=== PATIENT | male | born 1940 | race Caucasian/White ===

== ENCOUNTER 2017-01-07 06:16 | Day surgery (SDC) | payer MEDICARE, OTHER ==
[2017-01-05 08:52] VITALS: BMI 27.3
[2017-01-07] MEDS ORDERED: ATORVASTATIN 80 MG TAB PO STA (06:39)
[2017-01-07] MEDS ORDERED: SODIUM CHLORIDE 0.9% 1,000 ML in EMPTY BAG 1 BAG IV ONE (06:39)
[2017-01-07] MEDS ORDERED: NITROGLYCERIN SL TABS 0.4 MG TAB SUBLINGUAL PRN (06:39)
[2017-01-07] MEDS ORDERED: ASPIRIN 325 MG TAB PO STA (06:39)
[2017-01-07] MEDS ORDERED: ALPRAZolam 0.5 MG TAB PO PRN (06:39)
[2017-01-07] MEDS ORDERED: ALPRAZolam 0.25 MG TAB PO PRN (06:39)
[2017-01-07] MEDS ORDERED: MIDAZOLAM 2 MG/2 ML VIAL ONE ×2 (07:11→10:41)
[2017-01-07] MEDS ORDERED: fentaNYL (PF) 50 MCG/ML 2 ML AMP ONE (07:12)
[2017-01-07] MEDS ORDERED: IV FLUID CONTINUATION 850 ML IV ONE (07:26)
[2017-01-07] MEDS: BENZOCAINE SPRAY 1 SPRAY CAN MUCOUS MEM ONE ×2 (07:26→07:36)
[2017-01-07] MEDS ORDERED: MIDAZOLAM 2 MG/2 ML VIAL IVP ONE ×2 (07:36→08:23)
[2017-01-07] MEDS ORDERED: fentaNYL (PF) 50 MCG/ML 2 ML AMP IV ONE (07:36)
[2017-01-07 07:44] LABS: Anion Gap 9 mmol/L; Blood Urea Nitrogen 15 mg/dL (9-20); Calcium 8.7 mg/dL (8.4-10.2); Carbon Dioxide 21 mmol/L (22-30); Chloride 108 mmol/L (98-107); Glucose 91 mg/dL (74-99); Non-African American GFR(MDRD) >60 (>60 ml/min/1.73 sqM); Sodium 138 mmol/L (137-145)
[2017-01-07 07:52] VITALS: PULSE 75
--- NOTE | 2017-01-07 08:06 | P.TEE ---
Indications for Procedure(s): Symptoms of exertional shortness of breath. Assessment of mitral and aortic regurgitation Preoperative Diagnosis: Moderate to severe mitral and moderate aortic regurgitation Postoperative Diagnosis: About 2+ mitral and 1-2+ aortic regurgitation. Moderate tricuspid regurgitation Description of Procedure(s): INDICATION: Assessment of mitral and aortic regurgitation CONSENT: . Informed consent was obtained from patient verbally PROCEDURE: Patient was brought to the lab in a fasting state. He was prepped and draped in the usual fashion. Patient was given 2 mg of IV Versed, and also 50 g of fentanyl for conscious sedation. The throat was sprayed with Hurricaine. A lubricated Omni probe was then introduced into the oropharynx and was advanced into the esophagus. Multiple views were obtained from esophagus and stomach. Patient tolerated the procedure well. Color, pulsed wave Doppler, and also saline bubble injections were performed. FINDINGS: The mitral valve structure appeared to be normal. There is central mitral regurgitation which appeared to be about 2+ with a PISA value of about 0.5-0.6. There is no reversal of flow in the pulmonary veins. The aortic valve appeared to be tricuspid and function normally with mild regurgitation. Tricuspid valve showed evidence of moderate regurgitation. Pacemaker wires were partially visualized in the right-sided chambers. The interatrial septum appeared to be intact without any spontaneous shunt. Saline bubble injection did not reveal any evidence of shunt. Left apical appendage appeared to be free of any clot. Left ventricle function appeared to be normal. I echo showed minimal plaque. IMPRESSION: 2+ mitral regurgitation. 1 to 2+ aortic regurgitation. Preserved LV function. No clot in left atrial appendage. No shunt across the interatrial septum PLAN: . Continue maximal medical therapy. Assessment by cardiac catheterization to rule out underlying ischemic heart disease.
[2017-01-07] MEDS ORDERED: SODIUM CHLORIDE 0.9% 1,000 ML IV SCH ×2 (08:15→09:15)
[2017-01-07] MEDS ORDERED: LIDOCAINE 2% INJ 20 MG/ML SQ ONE (08:22)
[2017-01-07] MEDS ORDERED: IV FLUID CONTINUATION 800 ML IV ONE (08:27)
[2017-01-07] MEDS ORDERED: IOHEXOL 350 MG/ML 125ML BOTTLE INJ ONE ×2 (08:51)
[2017-01-07] MEDS ORDERED: RX INFO: IV CONTRAST WAS GIVEN 1 EACH MISC MISCELLANE PRN (09:09)
--- NOTE | 2017-01-07 09:09 | P.PCN ---
Date of Procedure: 01/07/17 Preoperative Diagnosis: Symptoms of exertional chest tightness and shortness of breath. 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 His nuclear stress test did not reveal any significant inducible ischemia. Echocardiogram showed evidence of moderate to severe mitral and also aortic regurgitation. Patient had a HARVEY examination this morning which showed only about 2+ mitral and about 1-2+ aortic regurgitation. Patient is advised to have cardiac catheterization to rule out any underlying significant ischemic heart disease. CONSENT:I have discussed the risks, benefits and alternative therapies for the above-mentioned procedure and for both sedation/analgesia as well as necessary blood product administration, if indicated, as they pertain to this patient. The patient has indicated understanding and acceptance of the risks and procedures discussed. PROCEDURE: Patient was brought to the lab in a fasting state. Patient was given some IV sedation. The right groin is infiltrated with lidocaine and right femoral artery was entered using Seldinger technique. A 6-Estonian catheter was left in place and selective coronary arteriography and left ventriculography was performed. However patient has tortuous aorta and we have encountered difficulty advancing the right Jessica catheter. At this point. The existing sheath was exchanged to a long 25 cm sheath. Patti catheter was was able to be advanced after the introduction of the long sheath and selective injection of the right coronary artery were obtained. Catheter Patient tolerated the procedure well. Femoral angiogram was performed and Angio-Seal was applied for hemostasis. No immediate complications were noted and patient was transferred to [facility] in a stable condition Conscious Sedation: Versed : 1 mg Fentanyl : 0 g Duration 35 minutes HEMODYNAMICS: . The aortic pressure is 130/70. Left ankle end-diastolic pressure is 16-20. There was no gradient across the aortic valve SELECTIVE CORONARY ARTERIOGRAPHY: LEFT MAIN: Normal length and patent THE LEFT ANTERIOR DESCENDING CORONARY ARTERY: . This is a good caliber vessel with a calcification in the midportion without any significant lesions except 80% eccentric lesion of the LAD near the apex. THE LEFT CIRCUMFLEX AND IS CORONARY ARTERY: This is a moderate caliber vessel giving rise good-sized OM branch. THE RIGHT CORONARY ARTERY: Good caliber vessel with mild ectasia and plaque in the proximal portion but no critical lesions LEFT VENTRICULOGRAPHY: Not performed FINAL IMPRESSION: . About 80% eccentric lesion involving the fourth distal LAD near the tip of the left ventricle. The proximal and mid LAD shows diffuse plaque without any significant lesions. The right coronary artery shows ectasia in the proximal portion without any significant lesions PLAN: Maximum medical therapy and this factor modification PROGNOSIS: Fair
[2017-01-07 12:44] LABS: Glucose,Whole Blood 85 mg/dL (75-99)
[2017-01-07 15:51] VITALS: RESP 20
[2017-01-07 15:52] VITALS: BP 127/80
--- NOTE | 2017-01-13 20:43 | CDI ---
Dear Dr. Rivas, In order to code and bill correctly for the moderate sedation that the patient was given during the 2 procedures, we need more information. It is not clear if the patient was moderately sedated from the start of the first procedure all the way through to the end of the second procedure -OR- if the patient was sedated for the first procedure, and then paused/stopped, and then sedated again for the second procedure. The amount of time that we code and bill for the moderate sedation will vary depending on the if it was the entire 2 procedures or split up. Please answer as an addendum to your OP report. Thank you MARIAM Michel
== END 2017-01-07 14:30 | disposition home or self-care (01) ==
LOC: CATHCVL 06:16
PROVIDERS: ATTEND Internal Medicine Cardiovascular Disease
DX: I25.119 Atherosclerotic heart disease of native coronary artery with unspecified angina pectoris (principal); I08.3 Combined rheumatic disorders of mitral, aortic and tricuspid valves; I10 Essential (primary) hypertension; E78.00 Pure hypercholesterolemia, unspecified; I49.5 Sick sinus syndrome; Z95.0 Presence of cardiac pacemaker; I25.2 Old myocardial infarction; Z88.2 Allergy status to sulfonamides; Z87.891 Personal history of nicotine dependence; Z79.899 Other long term (current) drug therapy
CPT/HCPCS: 93312; 93320; 93325; 93458; 80048; C1760; C1769 ×2; C1894 ×2; J2001; J2250; J3010; Q9967

== ENCOUNTER → 2017-01-29 | Outpatient (CLI) | payer MEDICARE, OTHER | LOC: CPPFTMAIN 10:06 | PROVIDERS: ATTEND Internal Medicine Cardiovascular Disease | DX: R06.02 Shortness of breath (principal) | CPT/HCPCS: 94060; 94726; 94729 ==

== ENCOUNTER 2017-09-28 06:33 | Day surgery (SDC) | payer MEDICARE, OTHER ==
[2017-09-24 11:58] VITALS: BMI 27.0
[~2017-09-28 06:33] MED LIST: LACTATED RINGERS 1,000 ML IV SCH; LIDOCAINE 1% 20 ML VIAL (10MG/ML) FOR IV START INTRADERMA PRN; MIDAZOLAM 2 MG/2 ML VIAL IV PRN; SODIUM CHLORIDE 0.9% 1,000 ML IV SCH
[2017-09-28 06:57] VITALS: TEMP 97
[2017-09-28 07:31] LABS: Anion Gap 13 mmol/L; Blood Urea Nitrogen 15 mg/dL (9-20); Calcium 9.2 mg/dL (8.4-10.2); Carbon Dioxide 24 mmol/L (22-30); Chloride 104 mmol/L (98-107); Glucose 94 mg/dL (74-99); Potassium 4.4 mmol/L (3.5-5.1); Sodium 141 mmol/L (137-145)
[2017-09-28] MEDS ORDERED: PROPOFOL 10 MG/ML 20 ML VIAL IV ONE (07:45)
--- NOTE | 2017-09-28 08:08 | P.PCN ---
Date of Procedure: 09/28/17 Preoperative Diagnosis: Atrial fibrillation, high degree AV block, status post permanent pacemaker implantation Postoperative Diagnosis: The same Description of Procedure: This patient is known to have persistent atrial fibrillation. Patient has been symptomatic. Patient was adequately anticoagulated and advised to have a cardioversion. Patient was brought to the lab in a fasting state. He was evaluated by anesthesia. He was prepped and draped in the usual fashion. Department of anesthesia is administered IV sedation. Anterior posterior paddles were applied. Synchronized shock of the 200 followed by 300 J was applied. It appears the patient converted to sinus rhythm. His difficult however to assess if he converts to sinus rhythm and marked because of pacemaker rhythm. His pacemaker will be checked today. He patient is stable, patient will be discharged home later today. Patient will continue current medical therapy. He will also increase the dose of the flecainide 200 mg twice a day, he patient is in sinus rhythm. Follow-up in the office in one week.
[2017-09-28] MEDS ORDERED: SODIUM CHLORIDE 0.9% 1,000 ML IV SCH (08:15)
[2017-09-28 08:22] VITALS: RESP 18
[2017-09-28 08:50] VITALS: PULSE 60
[2017-09-28 09:27] VITALS: BP 110/76
== END 2017-09-28 10:25 | disposition home or self-care (01) ==
LOC: CATHCVL 06:33
PROVIDERS: ATTEND Internal Medicine Cardiovascular Disease
DX: I48.1 Persistent atrial fibrillation (principal); I44.30 Unspecified atrioventricular block; Z95.0 Presence of cardiac pacemaker; I25.10 Atherosclerotic heart disease of native coronary artery without angina pectoris; E78.5 Hyperlipidemia, unspecified; I49.5 Sick sinus syndrome; M19.90 Unspecified osteoarthritis, unspecified site; I25.2 Old myocardial infarction; Z79.01 Long term (current) use of anticoagulants; Z79.82 Long term (current) use of aspirin; Z79.899 Other long term (current) drug therapy; Z88.2 Allergy status to sulfonamides
CPT/HCPCS: 92960; 80048; J2704

== ENCOUNTER 2017-12-15 10:42 | Day surgery (SDC) | payer MEDICARE, OTHER ==
[2017-12-10 16:07] VITALS: BMI 25.8
[~2017-12-15 10:42] MED LIST changes: -SODIUM CHLORIDE 0.9% 1,000 ML IV SCH
[2017-12-15 11:13] VITALS: RESP 16; TEMP 97.4
[2017-12-15] MEDS ORDERED: LIDOCAINE 1% INJ 10MG/ML (20 ML MDV) ONE (11:44)
[2017-12-15] MEDS ORDERED: PROPOFOL 10 MG/ML 20 ML VIAL IV ONE (11:44)
--- NOTE | 2017-12-15 12:19 | P.PCN ---
Date of Procedure: 12/15/17 Procedure(s) Performed: Procedure: Total colonoscopy. Preoperative diagnosis: Blood in the stools. Postoperative diagnosis: 1. Sigmoid diverticulosis with no evidence of acute diverticulitis, strictures, polyps or cancer. 2. Less than ideal preparation but no other obvious pathology or bleeding. Preparation: HalfLytely prep. Sedation: Was provided by anesthesia. Brief clinical history: The patient is a 77-year-old male who is scheduled for this evaluation because of finding of blood in his stools. The patient has been on antiplatelet therapy. There is history of polyps and he had colonoscopies over the years. His last exam was around 8 years ago. The patient denies any overt bleeding or any abdominal pains, change in bowel habits or upper GI symptoms. Procedure: With the patient on his left lateral decubitus position and after informed consent and adequate sedation, the perianal area was inspected and it did not show any fissures or fistulas. There were no masses felt on digital rectal examination. The Olympus CFQ 160L video colonoscope was then inserted in the rectum in the usual fashion and advanced to the cecum. The preparation was less than ideal and there was thick fecal secretions and fecal debris that could not be washed off or suctioned totally. The mucosa appeared healthy. No large polyps or tumors were seen or any obvious angiodysplasia or bleeding. I retroflexed the endoscope in the rectum before the endoscope was withdrawn. Low -grade internal hemorrhoids were noted but there was no evidence of bleeding. The patient tolerated the procedure well. Plan: The patient was reassured. In the absence of upper GI complaints or significant anemia I did not schedule an upper endoscopy for the workup of his Hemoccult positive stools at this time and this can be kept as a contingency based on his course. He will follow up with you as planned.
[2017-12-15 12:39] VITALS: BP 133/87; PULSE 65
== END 2017-12-15 12:58 | disposition home or self-care (01) ==
LOC: ORWHC2ENDO 10:42
DX: K92.1 Melena (principal); K57.30 Diverticulosis of large intestine without perforation or abscess without bleeding; K64.8 Other hemorrhoids; K21.9 Gastro-esophageal reflux disease without esophagitis; M19.90 Unspecified osteoarthritis, unspecified site; I10 Essential (primary) hypertension; I48.91 Unspecified atrial fibrillation; Z88.2 Allergy status to sulfonamides; Z79.1 Long term (current) use of non-steroidal anti-inflammatories (NSAID); Z79.01 Long term (current) use of anticoagulants; Z79.82 Long term (current) use of aspirin; Z79.899 Other long term (current) drug therapy; Z86.010 Personal history of colon polyps; Z96.651 Presence of right artificial knee joint; Z95.0 Presence of cardiac pacemaker
CPT/HCPCS: 45378; J2001; J2704

== ENCOUNTER 2018-08-23 11:34 | Day surgery (SDC) | payer MEDICARE, OTHER ==
[2018-08-18 13:39] VITALS: BMI 27.3
[~2018-08-23 11:34] MED LIST changes: -MIDAZOLAM 2 MG/2 ML VIAL IV PRN
[2018-08-23 11:57] VITALS: RESP 16; TEMP 97.8
[2018-08-23] MEDS ORDERED: PROPOFOL 10 MG/ML 20 ML VIAL IV ONE (12:33)
[2018-08-23] MEDS ORDERED: LIDOCAINE 1% INJ 10MG/ML (20 ML MDV) ONE (12:33)
--- NOTE | 2018-08-23 13:21 | P.PCN ---
Date of Procedure: 08/23/18 Procedure(s) Performed: Procedure: 1. Esophagogastroduodenoscopy and biopsy. 2. Colonoscopy and polypectomy. Preoperative diagnosis: History of polyps and blood in the stools. Postoperative diagnosis: 1. Antral gastritis with deformity possibly related to peptic ulcer disease. 2. Biopsies obtained from the antrum. 3. Sigmoid diverticulosis with no evidence of acute diverticulitis or strictures. 4. Cecal polyp snared and retrieved by suction but no large polyps or cancer. Preparation: HalfLytely prep. Sedation: Was provided by anesthesia. Brief clinical history: The patient is a 77-year-old male with history of polyps who is referred because of finding of blood in his stools. He had a prior colonoscopy in November of last year but his preparation was less than ideal. He had a recent drop in his hemoglobin and he has symptoms of shortness of breath and there was evidence of blood in his stools but no overt bleeding. Procedure: With the patient on his left lateral decubitus position and after informed consent and adequate sedation, I passed the Olympus-GIF H190 video upper endoscope through the cricopharyngeus down the esophagus. GE junction was around 40 cm from the incisors. There was no obvious hiatal hernia or any obvious esophagitis or complicated reflux disease or bleeding. The endoscope was then passed into the stomach which was insufflated with air and inspected in detail including the retroflex view in the cardia. There was erythema, edema and deformity in the antrum and immediate prepyloric area with a small erosion in the immediate prepyloric area that could be the site of a healing ulceration but no actual ulcers were noted. Pyloric channel did not show any ulcers. Duodenal bulb, post bulbar area and descending duodenum appeared within normal limits. I obtained biopsies from the antrum then the endoscope was withdrawn and I proceeded to perform the colonoscopy. Perianal area did not show any fissures or fistulas. There were no masses felt on digital rectal examination. The Olympus CF H190 and video colonoscope was then inserted in the rectum in the usual fashion and advanced to the cecum. There were several diverticular orifices seen scattered in the sigmoid with no evidence of acute diverticulitis or strictures. There was a 1-1.5 cm polyp in the cecum which was snared and retrieved by suction but there were no large polyps or cancer. The mucosa appeared healthy. No evidence of bleeding. I retroflexed the endoscope in the rectum before the endoscope was withdrawn. The patient tolerated the procedure well. Plan: The patient was reassured. Will await biopsy results. Discussed dietary measures. Consideration can be given for a capsule endoscopy if he continues to manifest evidence of bleeding despite healing of his gastritis. For colon cancer screening, consideration can be given for repeat colonoscopy in 5 years depending on his overall health at that time. He will discuss that with you.
[2018-08-23 13:28] VITALS: BP 118/79; PULSE 62
== END 2018-08-23 13:59 | disposition home or self-care (01) ==
LOC: ORWHC2ENDO 11:34
DX: K29.50 Unspecified chronic gastritis without bleeding (principal); K57.30 Diverticulosis of large intestine without perforation or abscess without bleeding; K92.1 Melena; K51.40 Inflammatory polyps of colon without complications; I48.91 Unspecified atrial fibrillation; K21.9 Gastro-esophageal reflux disease without esophagitis; M19.90 Unspecified osteoarthritis, unspecified site; Z96.651 Presence of right artificial knee joint; Z88.2 Allergy status to sulfonamides; Z79.01 Long term (current) use of anticoagulants; Z79.82 Long term (current) use of aspirin; Z86.010 Personal history of colon polyps; Z79.899 Other long term (current) drug therapy; Z79.1 Long term (current) use of non-steroidal anti-inflammatories (NSAID); Z95.0 Presence of cardiac pacemaker
CPT/HCPCS: 88305; 45385; 43239; J2001; J2704

== ENCOUNTER 2018-10-15 09:25 | Emergency (ER) | payer OTHER, MEDICARE ==
[2018-10-15] MEDS ORDERED: ACET/COD 300 MG/30 MG STARTER PACK 6 TAB BTL PO STA (09:50)
[2018-10-15] MEDS ORDERED: CYCLOBENZAPRINE 10MG STARTER 3 TAB BTL PO STA (09:50)
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
[2018-10-15 11:13] VITALS: RESP 18
[2018-10-15 12:38] VITALS: BP 146/96; PULSE 64; TEMP 98.6
== END 2018-10-15 12:38 | disposition home or self-care (01) ==
LOC: EC 09:25
DX: S32.018A Other fracture of first lumbar vertebra, initial encounter for closed fracture (principal); S50.312A Abrasion of left elbow, initial encounter; S50.311A Abrasion of right elbow, initial encounter; S80.212A Abrasion, left knee, initial encounter; I48.91 Unspecified atrial fibrillation; K21.9 Gastro-esophageal reflux disease without esophagitis; Z87.891 Personal history of nicotine dependence; Z79.01 Long term (current) use of anticoagulants; Z79.82 Long term (current) use of aspirin; Z79.899 Other long term (current) drug therapy; Z88.2 Allergy status to sulfonamides; Z96.651 Presence of right artificial knee joint; Z98.42 Cataract extraction status, left eye; Z95.0 Presence of cardiac pacemaker; V29.40XA Motorcycle driver injured in collision with unspecified motor vehicles in traffic accident, initial encounter; Y93.I9 Activity, other involving external motion; Y92.410 Unspecified street and highway as the place of occurrence of the external cause
CPT/HCPCS: 70450; 72100; 72125; 99284

== ENCOUNTER → 2018-11-08 | Outpatient (CLI) | payer OTHER ==
--- NOTE | 2018-11-08 14:16 | NM ---
EXAMINATION TYPE: NM bone scan whole body DATE OF EXAM: 11/08/2018 COMPARISON: NONE HISTORY: X-ray dated 10/15/2018 Delayed whole-body scanning was performed following the injection of 25.4 mCi Tc 99m MDP. Images acq uired 3 hours post injection. FINDINGS: Abnormal uptake involving the shoulders, left knee, left ankle, and feet likely arthritic. Abnormal uptake is seen throughout thoracic spine with most marked findings seen at T11. Mild uptake seen throughout the lumbar spine likely degenerative and corresponds the x-ray abnormality. There is abnormal uptake involving the sacrum bilaterally greater on the left appears out of proporti on to the x-ray findings. Photopenic defect involving the right knee compatible with previous knee replacement surgery. Faint uptake involving the lower cervical spine likely degenerative. IMPRESSION: 1. Nonspecific uptake involving the cervical, thoracic and lumbar spine is most likely degenerative. X-ray the lumbar spine corresponds to the abnormal uptake with degenerative disc disease. No thoracic spine x-rays are available and x-ray correlation is suggested. Cervical region corresponds to degene rative disc disease seen by CT scan 10/15/2018. 2. There is suggestion of a possible abdominal aortic aneurysm on the x-ray submitted recommend follo w-up ultrasound or CT scan. 3. Abnormal uptake involving the sacrum bilaterally greater on the left appears out of proportion to the x-ray findings. Findings most likely in the basis of sacroiliitis although there does appear to b e asymmetric marked sclerosis involving the left iliac bone. MRI recommended.
== END | disposition home or self-care (01) ==
LOC: RADNMMAIN 09:55
PROVIDERS: ATTEND Physical Medicine & Rehabilitation
DX: M50.30 Other cervical disc degeneration, unspecified cervical region (principal); M51.16 Intervertebral disc disorders with radiculopathy, lumbar region
CPT/HCPCS: 78306; A9503

== ENCOUNTER → 2019-10-19 | Outpatient (CLI) | payer MEDICARE, OTHER ==
--- NOTE | 2019-10-19 09:09 | US ---
EXAMINATION TYPE: US prostate transrectal DATE OF EXAM: 10/19/2019 COMPARISON: 03/07/16 CLINICAL HISTORY: R97.20 elevated prostate specific antigen PSA. Abn PSA, No urine symptoms per patie nt This examination was performed using the transrectal probe. EXAM MEASUREMENTS: Gland Size: 5.3 x 4.6 x 4.2 cm Volume: 52.8 ml Predicted PSA: 6.3 Actual PSA (if available):6.8 Prostate appears enlarged and heterogenous. Focal nonvascular nodularity visualized at mid base= 1.2 x 1.0 x 1.0 cm, central zone felt to reflect hypertrophic tissue. No suspicious lesion is identifi ed at this time. IMPRESSION: No suspicious lesion identified by sonography. Continued monitoring of PSA is advised. Predicted PSA = volume x 0.12 ng/ml Calculated Volume = 0.5236 x L x W x H
== END | disposition home or self-care (01) ==
LOC: RADUSWWP 08:14
PROVIDERS: ATTEND Family Medicine
DX: R97.20 Elevated prostate specific antigen [PSA] (principal)
CPT/HCPCS: 76872

== ENCOUNTER 2020-08-13 13:08 | Emergency (ER) | payer MEDICARE, OTHER ==
--- NOTE | 2020-08-13 13:17 | ED ---
General Adult HPI - General Stated complaint: SOB Time Seen by Provider: 08/13/20 13:10 Source: patient, RN notes reviewed, old records reviewed - History of Present Illness Initial comments: This is a 79-year-old male who presents emergency department stating that he went to see his doctors because he is having a lot of sinus drainage which started getting considerably worse over the weekend. Patient states he always has some during the ALLERGY season but over the weekend it got worse they wanted to see his doctor. Patient states they did a chest x-ray and thought he had pneumonia so they sent him in. Patient denies cough patient denies any fever chills. Patient denies any shortness of breath or difficulty breathing. Patient denies any chest pain. Patient denies palpitations. Patient states he feels good. Patient denies any diarrhea. Patient denies any loss of taste or smell. Patient states he has gotten his first shot of the COVID vaccine about 3 weeks ago. Patient denies any abdominal pain patient denies nausea vomiting or diarrhea - Related Data Home Medications Medication Instructions Recorded Confirmed Lansoprazole [Prevacid] 30 mg PO DAILY 02/09/15 10/15/18 Multivitamins, Thera [Multivitamin 1 tab PO DAILY 02/09/15 10/15/18 (formulary)] Nebivolol HCl [Bystolic] 10 mg PO DAILY 02/09/15 10/15/18 Celecoxib [CeleBREX] 200 mg PO DAILY 03/26/16 10/15/18 Aspirin [Adult Low Dose Aspirin EC] 81 mg PO DAILY 12/10/17 10/15/18 Rivaroxaban [Xarelto] 20 mg PO DAILY 12/10/17 10/15/18 Turmeric Root Extract [Turmeric] 500 mg PO HS 12/10/17 10/15/18 Cramp Defense 1 tab PO HS 08/18/18 10/15/18 Green Tea Extract Tab 315 mg PO HS 08/18/18 10/15/18 Potassium Chloride [Klor-Con 10] 10 meq PO DAILY 08/18/18 10/15/18 Previous Rx's Medication Instructions Recorded Acetaminophen with Codeine 1 tab PO Q6H PRN 3 Days #12 tab 10/15/18 [Tylenol w/codeine #3] Cyclobenzaprine [Flexeril] 10 mg PO TID #12 tab 10/15/18 Allergies Allergy/AdvReac Type Severity Reaction Status Date / Time Sulfa (Sulfonamide Allergy Unknown Verified 08/13/20 13:22 Antibiotics) Childhood Review of Systems ROS Statement: Those systems with pertinent positive or pertinent negative responses have been documented in the HPI. ROS Other: All systems not noted in ROS Statement are negative. Past Medical History Past Medical History: Atrial Fibrillation, GERD/Reflux, Osteoarthritis (OA) Additional Past Medical History / Comment(s): has episodes of SOB and weakness- has had testing and all have been negative for heart and pulmonary. Dr Ivory told him he was "short on blood" History of Any Multi-Drug Resistant Organisms: None Reported Past Surgical History: Adenoidectomy, Appendectomy, Heart Catheterization, Joint Replacement, Orthopedic Surgery, Pacemaker, Tonsillectomy Additional Past Surgical History / Comment(s): LEFT ROTATOR CUFF REPAIR, cardioversion, rt knee replacement, surgery for sleep apnea, left cataract Past Anesthesia/Blood Transfusion Reactions: Family History of Problems w/ Anesthesia Additional Past Anesthesia/Blood Transfusion Reaction / Comment(s): father got confused and had hallucinations Type of Cardiac Device: Permanent Pacemaker Device Placement Date:: 2011 aaprox Past Psychological History: No Psychological Hx Reported Past Alcohol Use History: None Reported Past Drug Use History: None Reported - Past Family History Father Family Medical History: Cancer Additional Family Medical History / Comment(s): STOMACH CA- Mother Family Medical History: No Reported History General Exam - General Exam Comments Initial Comments: GENERAL: Patient is well-developed and well-nourished. Patient is nontoxic and well- hydrated and is in no acute distress. ENT: Neck is soft and supple. No significant lymphadenopathy is noted. Oropharynx is clear. Moist mucous membranes. Neck has full range of motion without eliciting any pain. EYES: The sclera were anicteric and conjunctiva were pink and moist. Extraocular movements were intact and pupils were equal round and reactive to light. Eyelids were unremarkable. PULMONARY: Unlabored respirations. Good breath sounds bilaterally. No audible rales rhonchi or wheezing was noted. CARDIOVASCULAR: There is a regular rate and rhythm without any murmurs gallops or rubs. ABDOMEN: Soft and nontender with normal bowel sounds. SKIN: Skin is clear with no lesions or rashes and otherwise unremarkable. NEUROLOGIC: Patient is alert and oriented x3. Cranial nerves II through XII are grossly intact. Motor and sensory are also intact. Normal speech, volume and content. Symmetrical smile. MUSCULOSKELETAL: Normal extremities with adequate strength and full range of motion. No lower extremity swelling or edema. No calf tenderness. LYMPHATICS: No significant lymphadenopathy is noted PSYCHIATRIC: Normal psychiatric evaluation. Course Vital Signs 08/13/20 08/13/20 13:13 13:21 Temperature 97.7 F Pulse Rate 82 Respiratory 20 20 Rate Blood Pressure 119/84 O2 Sat by Pulse 95 Oximetry Medical Decision Making - Medical Decision Making Chest x-ray shows a right-sided pleural effusion. Patient's COVID test was negative. I spoke with the patient about the pleural effusion he states he had no symptoms no chest pain no difficulty breathing he denied any fever or cough. Patient states he would just as soon follow up with his mobile engineer. - Lab Data Lab Results 08/13/20 Range/Units 13:29 Coronavirus (PCR) Not Detected (Not Detectd) Disposition Clinical Impression: Pleural effusion Disposition: HOME SELF-CARE Condition: Good Instructions (If sedation given, give patient instructions): Pleural Effusion (ED) Additional Instructions: Patient should follow up with cardiology. Is patient prescribed a controlled substance at d/c from ED?: No Time of Disposition: 14:58
[2020-08-13 13:21] VITALS: PULSE 82; RESP 20
--- NOTE | 2020-08-13 13:53 | XR ---
EXAMINATION TYPE: XR chest 2V DATE OF EXAM: 08/13/2020 COMPARISON: None HISTORY: 79 year-old male shortness of breath, difficulty breathing TECHNIQUE: PA and lateral views FINDINGS: Left anterior chest wall pacemaker generator with right atrial and right ventricular leads. Heart mil dly enlarged. Eventration anterior right hemidiaphragm. Moderate effusion on the lateral view with ad jacent opacity. Degenerative change of both glenohumeral joints. Upper lungs are clear though there i s some interstitial prominence. IMPRESSION: Moderate pleural effusion with adjacent atelectasis and/or consolidation. Interstitial prominence. Co rrelate for mild CHF as a possible etiology.
[2020-08-13 15:42] VITALS: BP 129/86; TEMP 98.5
== END 2020-08-13 15:49 | disposition home or self-care (01) ==
LOC: EC 13:08
DX: J90 Pleural effusion, not elsewhere classified (principal); K21.9 Gastro-esophageal reflux disease without esophagitis; I48.91 Unspecified atrial fibrillation; M19.90 Unspecified osteoarthritis, unspecified site; Z20.822 Contact with and (suspected) exposure to COVID-19; Z79.82 Long term (current) use of aspirin; Z79.1 Long term (current) use of non-steroidal anti-inflammatories (NSAID)
CPT/HCPCS: 71046; 87635; 99285

== ENCOUNTER 2021-03-27 07:34 | Day surgery (SDC) | payer MEDICARE, OTHER ==
[2021-03-25 08:20] VITALS: BMI 23.6
[~2021-03-27 07:34] MED LIST changes: -LACTATED RINGERS 1,000 ML IV SCH; -LIDOCAINE 1% 20 ML VIAL (10MG/ML) FOR IV START INTRADERMA PRN; +SODIUM CHLORIDE 0.9% 1,000 ML IV SCH; +ceFAZolin 1 GM in SODIUM CHLORIDE 0.9% 250 ML IRRIGATION PRN
[2021-03-27 08:13] VITALS: RESP 18; TEMP 98.6
[2021-03-27 08:13] LABS: Basophils # (A) 0.1 k/uL (0-0.2); Basophils % (A) 1 %; Eosinophils # (A) 0.4 k/uL (0-0.7); Eosinophils % (A) 5 %; HCT 31.3 % (39.0-53.0); HGB 10.4 gm/dL (13.0-17.5); Lymphocytes # (A) 0.9 k/uL (1.0-4.8); Lymphocytes % (A) 12 %; MCH 32.1 pg (25.0-35.0); MCHC 33.2 g/dL (31.0-37.0); MCV 96.9 fL (80.0-100.0); Mean Platelet Volume 7.1; Monocytes # (A) 0.8 k/uL (0-1.0); Monocytes % (A) 11 %; Neutrophils % (A) 69 %; Platelet Count 307 k/uL (150-450); RBC 3.23 m/uL (4.30-5.90); RDW 13.1 % (11.5-15.5); WBC 7.3 k/uL (3.8-10.6)
[2021-03-27 08:35] LABS: African American GFR (CKD) >90 (>60 ml/min/1.73 sqM); Anion Gap 10 mmol/L; Blood Urea Nitrogen 13 mg/dL (9-20); Calcium 9.9 mg/dL (8.4-10.2); Carbon Dioxide 29 mmol/L (22-30); Chloride 99 mmol/L (98-107); Glucose 113 mg/dL (74-99); Non-African American GFR(CKD) >90 (>60 ml/min/1.73 sqM); Potassium 3.8 mmol/L (3.5-5.1); Sodium 138 mmol/L (137-145)
[2021-03-27] MEDS ORDERED: LIDOCAINE 1% INJ 10MG/ML (20 ML MDV) ONE (09:03)
[2021-03-27] MEDS ORDERED: MIDAZOLAM 2 MG/2 ML VIAL IV ONE (09:34)
[2021-03-27] MEDS ORDERED: fentaNYL (PF) 50 MCG/ML 2 ML AMP IV ONE (09:34)
[2021-03-27] MEDS ORDERED: LIDOCAINE 1% INJ 10MG/ML (20 ML MDV) SQ ONE (09:36)
[2021-03-27] MEDS ORDERED: ACETAMINOPHEN TAB 325 MG TAB PO PRN (10:04)
[2021-03-27 13:05] VITALS: BP 125/68
[2021-03-27 13:25] VITALS: PULSE 82
--- NOTE | 2021-03-28 12:52 | P.PCN ---
Date of Procedure: 03/27/21 Preoperative Diagnosis: Battery depletion Postoperative Diagnosis: The same Procedure(s) Performed: Generator replacement Description of Procedure: HISTORY: This is a 80-year-old gentleman with history of permanent pacemaker implantation who has reached [facility]. Patient is brought in for elective replacement of generator. CONSENT: I have discussed the risks and benefits as related to the above mentioned procedure and both sedation/analgesia as well as necessary blood product administration. The patient has indicated understanding and acceptance of the risks of the procedure discussed. PROCEDURE: Patient was brought to the lab in a fasting state. Patient was given IV Versed and fentanyl for sedation. The skin over the existing pulse generator was infiltrated with lidocaine. An incision was made in the skin and was deepened until the pectoral fascia was exposed. Hemostasis was obtained. The existing pulse generator was pulled out of the pocket. The leads were disconnected and were checked for thresholds. Conscious Sedation: Versed 1mg Fentanyl 25 g Duration 25minutes THRESHOLDS: ATRIAL: Patient is in atrial fibrillation. Threshold measurements are not done. The impedance is 285 P- wave: N/A VENTRICULAR: The minimum patient threshold is 0.75 V at pulse width of 0.4. The impedance is 437 R-wave: 9 mV THE LEADS: ATRIAL: This is manufactured by [employer]. Model number is [id number]. The serial number is [id number]. VENTRICULAR: This is manufactured by [employer]. Model number is 5092-58. Serial number is [id number]. THE EXPLANTED DEVICE: This is manufactured by [employer]. Model number is [id number] and the serial number is [id number]. THE NEW DEVICE: This is manufactured by [employer].Model number is [id number] and the serial number is [id number] The leads were then connected to a new pulse generator. Pacemaker seems to function normally. The pocket was irrigated with antibiotics. The pocket was closed in the usual fashion. Pectoral fascia was closed with 2-0 Prolene, the subcutaneous tissue was closed with 3-0 Prolene and the skin was closed with 4-0 Prolene. Patient tolerated the procedure well . Patient will be monitored on the telemetry unit for 2-3 hours. If stable patient be discharged home later today. PLAN: Patient will be monitored for the next few hours. If stable will be discharged home FALLOWLOW UP:With Dr. Umana in one week
== END 2021-03-27 13:07 | disposition home or self-care (01) ==
LOC: CATHEP 07:34
PROVIDERS: ATTEND Internal Medicine Cardiovascular Disease
DX: Z45.2 Encounter for adjustment and management of vascular access device (principal); Z20.822 Contact with and (suspected) exposure to COVID-19
CPT/HCPCS: 33227; 33228; 80048; 85025; 87635; C1785; J2250; J0690; J2001; J3010

== ENCOUNTER 2021-07-01 13:00 | Observation (INO) | payer MEDICARE, OTHER ==
[2021-07-01 13:10] VITALS: RESP 16
--- NOTE | 2021-07-01 13:40 | ED ---
General Adult HPI - General Chief complaint: Chest Pain Stated complaint: chest pain Time Seen by Provider: 07/01/21 13:05 Source: patient, RN notes reviewed, old records reviewed Mode of arrival: ambulatory Limitations: no limitations - History of Present Illness Initial comments: This is a 80-year-old male who presents emergency department stating that for the last week he's had episodes of near syncope and then he would be a little incontinent of urine and occasionally a little incontinent of stool. Patient states she's had no trauma no back pain. Patient denies any numbness or weakness. Patient states he has another syncopal episode he just gets generalized weakness and then all of a sudden has an inability to hold her stool. Patient denies any chest pain or difficulty breathing or shortness of breath. Patient states a week ago chest pain but he saw his executive vice president of sales in the adjusted his pacemaker and he stated no chest pain since. Patient denies any recent fever chills or cough per patient denies any black stools. Patient states he also gets extremely fatigued with any exertion. Patient states these episodes overall over the last 5-10 minutes. - Related Data Home Medications Medication Instructions Recorded Confirmed Lansoprazole [Prevacid] 30 mg PO DAILY 02/09/15 03/27/21 Multivitamins, Thera [Multivitamin 1 tab PO DAILY 02/09/15 03/27/21 (formulary)] Celecoxib [CeleBREX] 100 mg PO DAILY 03/26/16 03/27/21 Turmeric Root Extract [Turmeric] 500 mg PO HS 12/10/17 03/27/21 Green Tea Extract Tab 315 mg PO HS 08/18/18 03/27/21 Potassium Chloride [Klor-Con 10 ER] 10 meq PO DAILY 08/18/18 03/27/21 Ascorbic Acid [Vitamin C] 1,000 mg PO DAILY 03/25/21 03/27/21 Magnesium 500 mg PO BID 03/25/21 03/27/21 Metoprolol Succinate [Kapspargo 50 mg PO QAM 03/25/21 03/27/21 Sprinkle] Previous Rx's Medication Instructions Recorded Acetaminophen with Codeine 1 tab PO Q6H PRN 3 Days #12 tab 10/15/18 [Tylenol w/codeine #3] Cephalexin [Keflex] 500 mg PO Q8HR 1 Days #9 cap 03/27/21 Allergies Allergy/AdvReac Type Severity Reaction Status Date / Time Sulfa (Sulfonamide Allergy Itching,felt Verified 07/01/21 13:10 Antibiotics) "uneasy" Review of Systems ROS Statement: Those systems with pertinent positive or pertinent negative responses have been documented in the HPI. ROS Other: All systems not noted in ROS Statement are negative. Past Medical History Past Medical History: Atrial Fibrillation, GERD/Reflux, Osteoarthritis (OA) Additional Past Medical History / Comment(s): SOB with exersion, see Dr Mckeon H&P, History of Any Multi-Drug Resistant Organisms: None Reported Past Surgical History: Adenoidectomy, Appendectomy, Heart Catheterization, Joint Replacement, Orthopedic Surgery, Pacemaker, Tonsillectomy Additional Past Surgical History / Comment(s): LEFT ROTATOR CUFF REPAIR, cardioversion, rt knee replacement, eliane cataract, removal of uvula for sleep apnea Past Anesthesia/Blood Transfusion Reactions: Family History of Problems w/ Anesthesia Additional Past Anesthesia/Blood Transfusion Reaction / Comment(s): father got confused and had hallucinations Type of Cardiac Device: Permanent Pacemaker Device Placement Date:: 2011 aaprox Past Psychological History: No Psychological Hx Reported Smoking Status: Former smoker Past Alcohol Use History: None Reported Past Drug Use History: None Reported - Past Family History Father Family Medical History: Cancer Additional Family Medical History / Comment(s): colon CA- Mother Family Medical History: No Reported History General Exam - General Exam Comments Initial Comments: GENERAL: Patient is well-developed and well-nourished. Patient is nontoxic and well- hydrated and is in mild distress. ENT: Neck is soft and supple. No significant lymphadenopathy is noted. Oropharynx is clear. Moist mucous membranes. Neck has full range of motion without eliciting any pain. EYES: The sclera were anicteric and conjunctiva were pale. Extraocular movements were intact and pupils were equal round and reactive to light. Eyelids were unr emarkable. PULMONARY: Unlabored respirations. Good breath sounds bilaterally. No audible rales rh onchi or wheezing was noted. CARDIOVASCULAR: There is a regular rate and rhythm without any murmurs gallops or rubs. ABDOMEN: Soft and nontender with normal bowel sounds. No palpable organomegaly was noted. There is no palpable pulsatile mass. SKIN: Pale skin and conjunctiva NEUROLOGIC: Patient is alert and oriented x3. Cranial nerves II through XII are grossly intact. Motor and sensory are also intact. Normal speech, volume and content. Symmetrical smile. Her knee him sensation was normal MUSCULOSKELETAL: Normal extremities with adequate strength and full range of motion. LYMPHATICS: No significant lymphadenopathy is noted PSYCHIATRIC: Normal psychiatric evaluation. Limitations: no limitations Course Vital Signs 07/01/21 07/01/21 07/01/21 13:07 14:31 17:03 Temperature 98.2 F 97.5 F L Pulse Rate 87 94 Pulse Rate [ 82 Postal Clerk ] Pulse Rate [ 93 Sitting Postal Clerk] Pulse Rate [ 90 Standing Postal Clerk ] Pulse Rate [ 82 Supine Postal Clerk] Respiratory 16 16 Rate Blood Pressure 142/94 125/81 Blood Pressure 120/82 [Right Arm Sitting] Blood Pressure 122/78 [Right Arm Standing] Blood Pressure 128/88 [Right Arm Supine] O2 Sat by Pulse 98 Oximetry Medical Decision Making - Medical Decision Making EKG shows atrial fibrillation at 94 bpm QRS is 89 Q-T intervals 331 QTC is 382. Patient's EKG shows no ST segment elevation or depression. Chest x-ray shows no acute abnormality. KUB shows no acute abnormality. Patient continues to feel fatigued with walking his hemoglobin is low and he is on eliquis. I spoke with some physicians agreed to admit the patient admitted the patient I consult Dr. Avilez - Lab Data Result diagrams: 07/01/21 14:14 07/01/21 14:14 Lab Results 07/01/21 07/01/21 07/01/21 Range/Units 14:14 14:14 14:14 WBC 8.4 (3.8-10.6) k/uL RBC 2.95 L (4.30-5.90) m/uL Hgb 7.9 L (13.0-17.5) gm/dL Hct 27.0 L (39.0-53.0) % MCV 91.6 (80.0-100.0) fL MCH 27.0 (25.0-35.0) pg MCHC 29.4 L (31.0-37.0) g/dL RDW 14.8 (11.5-15.5) % Plt Count 209 (150-450) k/uL MPV 7.9 Neutrophils % 79 % Lymphocytes % 9 % Monocytes % 8 % Eosinophils % 1 % Basophils % 0 % Neutrophils # 6.7 (1.3-7.7) k/uL Lymphocytes # 0.7 L (1.0-4.8) k/uL Monocytes # 0.7 (0-1.0) k/uL Eosinophils # 0.0 (0-0.7) k/uL Basophils # 0.0 (0-0.2) k/uL Hypochromasia Marked Poikilocytosis Slight PT 16.8 H (9.0-12.0) sec INR 1.6 H (<1.2) APTT 30.9 H (22.0-30.0) sec Sodium 139 (137-145) mmol/L Potassium 3.9 (3.5-5.1) mmol/L Chloride 107 (98-107) mmol/L Carbon Dioxide 27 (22-30) mmol/L Anion Gap 5 mmol/L BUN 21 H (9-20) mg/dL Creatinine 0.94 (0.66-1.25) mg/dL Est GFR (CKD-EPI)AfAm 89 (>60 ml/min/1.73 sqM) Est GFR (CKD-EPI)NonAf 77 (>60 ml/min/1.73 sqM) Glucose 99 (74-99) mg/dL Calcium 9.1 (8.4-10.2) mg/dL Magnesium 1.9 (1.6-2.3) mg/dL Total Bilirubin 1.3 (0.2-1.3) mg/dL AST 47 (17-59) U/L ALT 19 (4-49) U/L Alkaline Phosphatase 134 H (38-126) U/L Troponin I (0.000-0.034) ng/mL Total Protein 7.5 (6.3-8.2) g/dL Albumin 3.6 (3.5-5.0) g/dL Urine Color Urine Appearance (Clear) Urine pH (5.0-8.0) Ur Specific Arab (1.001-1.035) Urine Protein (Negative) Urine Glucose (UA) (Negative) Urine Ketones (Negative) Urine Blood (Negative) Urine Nitrite (Negative) Urine Bilirubin (Negative) Urine Urobilinogen (<2.0) mg/dL Ur Leukocyte Esterase (Negative) Urine WBC (0-5) /hpf Ur Squamous Epith Cells (0-4) /hpf Calcium Oxalate Crystal (None) /hpf Urine Mucus (None) /hpf Blood Type Blood Type Recheck Bld Type Recheck Status Antibody Screen Spec Expiration Date 07/01/21 07/01/21 07/01/21 Range/Units 14:14 14:19 14:23 WBC (3.8-10.6) k/uL RBC (4.30-5.90) m/uL Hgb (13.0-17.5) gm/dL Hct (39.0-53.0) % MCV (80.0-100.0) fL MCH (25.0-35.0) pg MCHC (31.0-37.0) g/dL RDW (11.5-15.5) % Plt Count (150-450) k/uL MPV Neutrophils % % Lymphocytes % % Monocytes % % Eosinophils % % Basophils % % Neutrophils # (1.3-7.7) k/uL Lymphocytes # (1.0-4.8) k/uL Monocytes # (0-1.0) k/uL Eosinophils # (0-0.7) k/uL Basophils # (0-0.2) k/uL Hypochromasia Poikilocytosis PT (9.0-12.0) sec INR (<1.2) APTT (22.0-30.0) sec Sodium (137-145) mmol/L Potassium (3.5-5.1) mmol/L Chloride (98-107) mmol/L Carbon Dioxide (22-30) mmol/L Anion Gap mmol/L BUN (9-20) mg/dL Creatinine (0.66-1.25) mg/dL Est GFR (CKD-EPI)AfAm (>60 ml/min/1.73 sqM) Est GFR (CKD-EPI)NonAf (>60 ml/min/1.73 sqM) Glucose (74-99) mg/dL Calcium (8.4-10.2) mg/dL Magnesium (1.6-2.3) mg/dL Total Bilirubin (0.2-1.3) mg/dL AST (17-59) U/L ALT (4-49) U/L Alkaline Phosphatase (38-126) U/L Troponin I 0.031 (0.000-0.034) ng/mL Total Protein (6.3-8.2) g/dL Albumin (3.5-5.0) g/dL Urine Color Yellow Urine Appearance Clear (Clear) Urine pH 5.5 (5.0-8.0) Ur Specific Arab 1.026 (1.001-1.035) Urine Protein 2+ H (Negative) Urine Glucose (UA) Negative (Negative) Urine Ketones Negative (Negative) Urine Blood Negative (Negative) Urine Nitrite Negative (Negative) Urine Bilirubin Negative (Negative) Urine Urobilinogen 2.0 (<2.0) mg/dL Ur Leukocyte Esterase Trace H (Negative) Urine WBC 4 (0-5) /hpf Ur Squamous Epith Cells <1 (0-4) /hpf Calcium Oxalate Crystal Few H (None) /hpf Urine Mucus Rare H (None) /hpf Blood Type AB Positive Blood Type Recheck AB Pos Bld Type Recheck Status No Antibody Screen NEGATIVE Spec Expiration Date 07/04/20212318 Disposition Clinical Impression: Anemia, Near syncope, Urinary incontinence, Stool incontinence Disposition: ADMITTED IP TO THIS [facility] Referrals: Washington Ivory MD [Primary Care Provider] - 1-2 days Time of Disposition: 17:10
[2021-07-01 14:31] LABS: INR 1.6 (<1.2); Partial Thromboplastin Time 30.9 sec (22.0-30.0); Prothrombin Time 16.8 sec (9.0-12.0)
[2021-07-01 14:33] LABS: Albumin 3.6 g/dL (3.5-5.0); Calcium 9.1 mg/dL (8.4-10.2); Magnesium 1.9 mg/dL (1.6-2.3); Potassium 3.9 mmol/L (3.5-5.1); Total Bilirubin 1.3 mg/dL (0.2-1.3); Total Protein 7.5 g/dL (6.3-8.2)
[2021-07-01 14:35] LABS: Basophils % (A) 0 %; Eosinophils % (A) 1 %; HGB 7.9 gm/dL (13.0-17.5); Hypochromasia Marked; Lymphocytes # (A) 0.7 k/uL (1.0-4.8); Lymphocytes % (A) 9 %; MCHC 29.4 g/dL (31.0-37.0); MCV 91.6 fL (80.0-100.0); Mean Platelet Volume 7.9; Monocytes # (A) 0.7 k/uL (0-1.0); Monocytes % (A) 8 %; Neutrophils # (A) 6.7 k/uL (1.3-7.7); Neutrophils % (A) 79 %; Platelet Count 209 k/uL (150-450); Poikilocytosis Slight; RBC 2.95 m/uL (4.30-5.90); RDW 14.8 % (11.5-15.5); WBC 8.4 k/uL (3.8-10.6)
[2021-07-01 14:45] LABS: Appearance,Urine Clear (Clear); Bilirubin,Urine Negative (Negative); Blood,Urine Negative (Negative); Calcium Oxalate Crystals,Urine Few /hpf; Color,Urine Yellow; Glucose,Urine (UA) Negative (Negative); Ketones,Urine Negative (Negative); Leukocyte Esterase,Urine Trace (Negative); Mucus,Urine Rare /hpf; Nitrite,Urine Negative (Negative); PH, Urine 5.5 (5.0-8.0); Protein,Urine 2+ (Negative); Specific Gravity,Urine 1.026 (1.001-1.035); Squamous Epithelial Cell,Urine <1 /hpf (0-4); WBC,Urine 4 /hpf (0-5)
--- NOTE | 2021-07-01 16:24 | XR ---
EXAMINATION TYPE: XR chest 2V DATE OF EXAM: 07/01/2021 COMPARISON: X-ray dated 08/13/2020 HISTORY: Chest pain, SOB and palpitations TECHNIQUE: Frontal and lateral views of the chest are obtained. FINDINGS: Small bilateral basal pulmonary atelectasis. Slightly congested pulmonary vasculature. Unc hanged suspected pleural effusion on the lateral view with elevated right hemidiaphragm. Cardiac size can't be properly assessed. A left upper chest wall dual-lead pacemaker, stable. No definite pneumot horax. Unchanged bony thoracic cage. IMPRESSION: As above.
--- NOTE | 2021-07-01 16:35 | XR ---
EXAMINATION TYPE: XR KUB DATE OF EXAM: 07/01/2021 4:16 PM INDICATION: Patient age:Male; 80 years old; Reason for study: Abdominal distention; COMPARISON: None. TECHNIQUE: One radiographic view of the abdomen was obtained. FINDINGS: The bowel gas pattern is nonspecific without dilated loops of small or large bowel. There i s no evidence for organomegaly or pneumoperitoneum. The osseous structures are intact. Pelvic calci fications are present probably representing phleboliths. Present. Fecal material and gas are demonst rated throughout the colon and rectum. There is a tortuous aorta suggested with calcification. Cardi ac conduction leads are partially visualized. Small left pleural effusion suggested. IMPRESSION: 1. Nonspecific bowel gas pattern without radiographic evidence for acute process. 2. Small left pleural effusion.
[2021-07-01 17:06] VITALS: BP 125/81; PULSE 94; TEMP 97.5
[2021-07-01] MEDS ORDERED: SODIUM CHLORIDE 0.9% 1,000 ML IV ONE (17:17)
--- NOTE | 2021-07-01 18:25 | P.HPIM ---
History of Present Illness Chief Complaint: Generalized weakness Patient is a 80-year-old male with a past medical history significant for atrial fibrillation on medical regulation, pacemaker, multivitamins, GERD the presents of the hospital secondary to generalized weakness. He denies any focal neurologic deficits including weakness or sensory abnormalities. He over does complain of having episodes of urinary incontinence. He denies any weight loss, fever, chills, chest pain or palpitations. He was recently evaluated by his audit spec and appropriate changes were made to the pacemaker as per patient. Patient denies any complete syncope however does have episodes of near syncope. He denies any melena/bright red blood per rectum. Patient's vital signs in the emergency department are within normal limits orthostatic vitals were also completed which were negative. CBC was completed which showed a hemoglobin of 7.9 with a baseline of hemoglobin 10.4 out in March 2021. Consultation to cardiology was made by the emergency department. Past Medical History Past Medical History: Atrial Fibrillation, GERD/Reflux, Osteoarthritis (OA) Additional Past Medical History / Comment(s): SOB with exersion, see Dr Mckeon H&P, History of Any Multi-Drug Resistant Organisms: None Reported Past Surgical History: Adenoidectomy, Appendectomy, Heart Catheterization, Joint Replacement, Orthopedic Surgery, Pacemaker, Tonsillectomy Additional Past Surgical History / Comment(s): LEFT ROTATOR CUFF REPAIR, cardioversion, rt knee replacement, eliane cataract, removal of uvula for sleep apnea Past Anesthesia/Blood Transfusion Reactions: Family History of Problems w/ Anesthesia Additional Past Anesthesia/Blood Transfusion Reaction / Comment(s): father got confused and had hallucinations Type of Cardiac Device: Permanent Pacemaker Device [facility] Past Psychological History: No Psychological Hx Reported Smoking Status: Former smoker Past Alcohol Use History: None Reported Past Drug Use History: None Reported - Past Family History Father Family Medical History: Cancer Additional Family Medical History / Comment(s): colon CA- Mother Family Medical History: No Reported History Medications and Allergies Home Medications Medication Instructions Recorded Confirmed Type Multivitamins, Thera [Multivitamin 1 tab PO DAILY 02/09/15 07/01/21 History (formulary)] Celecoxib [CeleBREX] 100 mg PO BID 03/26/16 07/01/21 History Ascorbic Acid [Vitamin C] 500 mg PO DAILY 07/01/21 07/01/21 History Cyanocobalamin [Vitamin B-12] 500 mcg PO DAILY 07/01/21 07/01/21 History Green Tea Cheraw Extract [Green Tea 500 mg PO DAILY 07/01/21 07/01/21 History Extract] Magnesium Oxide [Marks] 500 mg PO BID 07/01/21 07/01/21 History Metoprolol Succinate [Toprol XL] 50 mg PO DAILY 07/01/21 07/01/21 History Pantoprazole [Protonix] 40 mg PO DAILY 07/01/21 07/01/21 History Potassium Chloride ER [K-Dur 20] 20 meq PO DAILY 07/01/21 07/01/21 History Rivaroxaban [Xarelto] 20 mg PO DAILY 07/01/21 07/01/21 History Triamcinolone 0.1% Cream [Kenalog 1 applicatio TOPICAL BID 07/01/21 07/01/21 History 0.1% Cream] Zinc 50 mg PO DAILY 07/01/21 07/01/21 History hydroCHLOROthiazide [Hydrodiuril] 25 mg PO DAILY 07/01/21 07/01/21 History Allergies Allergy/AdvReac Type Severity Reaction Status Date / Time Sulfa (Sulfonamide Allergy Itching,felt Verified 07/01/21 17:36 Antibiotics) "uneasy" Physical Exam Vitals: Vital Signs Temp Pulse Pulse Pulse Pulse Pulse Resp 07/01/21 17:03 97.5 F L 94 16 07/01/21 14:31 82 93 90 82 07/01/21 13:07 98.2 F 87 16 BP BP BP BP Pulse Ox 07/01/21 17:03 125/81 07/01/21 14:31 120/82 122/78 128/88 07/01/21 13:07 142/94 98 Intake and Output 07/01/21 07/01/21 07/01/21 06:59 14:59 22:59 Other: Weight 78.925 kg Gen. patient is awake alert oriented 3 Respiratory normal bilateral air entry GI abdomen soft nontender Cardio normal S1/S2 Neuro normal in those 2-12 grossly intact 5/5 muscle strength in upper and lower extremity Normal sensation bilaterally upper and lower Results CBC & Chem 7: 07/01/21 14:14 07/01/21 14:14 Labs: Abnormal Lab Results - Last 24 Hours (Table) 03/11/1507/01/21 07/01/21 Range/Units 14:14 14:14 14:14 RBC 2.95 L (4.30-5.90) m/uL Hgb 7.9 L (13.0-17.5) gm/dL Hct 27.0 L (39.0-53.0) % MCHC 29.4 L (31.0-37.0) g/dL Lymphocytes # 0.7 L (1.0-4.8) k/uL PT 16.8 H (9.0-12.0) sec INR 1.6 H (<1.2) APTT 30.9 H (22.0-30.0) sec BUN 21 H (9-20) mg/dL Alkaline Phosphatase 134 H (38-126) U/L Urine Protein (Negative) Ur Leukocyte Esterase (Negative) Calcium Oxalate Crystal (None) /hpf Urine Mucus (None) /hpf 07/01/21 Range/Units 14:23 RBC (4.30-5.90) m/uL Hgb (13.0-17.5) gm/dL Hct (39.0-53.0) % MCHC (31.0-37.0) g/dL Lymphocytes # (1.0-4.8) k/uL PT (9.0-12.0) sec INR (<1.2) APTT (22.0-30.0) sec BUN (9-20) mg/dL Alkaline Phosphatase (38-126) U/L Urine Protein 2+ H (Negative) Ur Leukocyte Esterase Trace H (Negative) Calcium Oxalate Crystal Few H (None) /hpf Urine Mucus Rare H (None) /hpf Assessment and Plan Assessment: Assessment: #1 generalized weakness nonspecific secondary to pacemaker? Versus GI bleed? #2 atrial fibrillation on anticoagulation #3 GERD #4 essential hypertension Plan: -Admit to medicine for close monitoring -Aspiration/fall precaution -Continue to monitor H&H and transfuse if less than 7 -Consultation to cardiology placed evaluated for pacemaker that can be possibly causing generalized weakness or changes in energy? -Possible colonoscopy obtain fecal occult to evaluate for the loss anemia -DVT prophylaxis on AC
[2021-07-01 19:03] LABS: Basophils % (A) 0 %; Eosinophils # (A) 0.1 k/uL (0-0.7); Eosinophils % (A) 1 %; HGB 7.8 gm/dL (13.0-17.5); Hypochromasia Marked; Lymphocytes # (A) 0.8 k/uL (1.0-4.8); Lymphocytes % (A) 9 %; MCH 27.6 pg (25.0-35.0); MCV 91.9 fL (80.0-100.0); Mean Platelet Volume 7.5; Monocytes # (A) 0.7 k/uL (0-1.0); Monocytes % (A) 8 %; Neutrophils # (A) 6.9 k/uL (1.3-7.7); Neutrophils % (A) 79 %; Platelet Count 228 k/uL (150-450); Poikilocytosis Slight; RBC 2.83 m/uL (4.30-5.90); RDW 14.8 % (11.5-15.5); WBC 8.7 k/uL (3.8-10.6)
[2021-07-02] MEDS ORDERED: PANTOPRAZOLE 40 MG TABLET PO SCH (07:30)
[2021-07-02] MEDS ORDERED: METOPROLOL SUCCINATE (ER) 50 MG TAB.ER.24H PO SCH (09:00)
[2021-07-02] MEDS ORDERED: RIVAROXABAN 20 MG TAB PO SCH (09:00)
[2021-07-02] MEDS ORDERED: hydroCHLOROthiazide 25 MG TAB PO SCH (09:00)
== END 2021-07-01 20:38 | disposition left against medical advice (07) ==
LOC: EC 13:00 → 6NMEDSUR 17:28
PROVIDERS: ADMIT Internal Medicine; ATTEND Internal Medicine
DX: R53.1 Weakness (principal); I48.91 Unspecified atrial fibrillation; R55 Syncope and collapse; R53.83 Other fatigue; K21.9 Gastro-esophageal reflux disease without esophagitis; I10 Essential (primary) hypertension; D64.9 Anemia, unspecified; R15.9 Full incontinence of feces; R32 Unspecified urinary incontinence; M19.90 Unspecified osteoarthritis, unspecified site; G47.30 Sleep apnea, unspecified; Z79.01 Long term (current) use of anticoagulants; Z79.1 Long term (current) use of non-steroidal anti-inflammatories (NSAID); Z79.899 Other long term (current) drug therapy; Z88.2 Allergy status to sulfonamides; Z98.41 Cataract extraction status, right eye; Z98.42 Cataract extraction status, left eye; Z96.1 Presence of intraocular lens; Z87.891 Personal history of nicotine dependence; Z96.651 Presence of right artificial knee joint; Z95.0 Presence of cardiac pacemaker; Z90.89 Acquired absence of other organs; Z80.0 Family history of malignant neoplasm of digestive organs; Z53.9 Procedure and treatment not carried out, unspecified reason
CPT/HCPCS: 99285; 36415; 93005; 86900; 86901; 80053; 83735; 84484; 85025; 85610; 85730; 86850; 81001; 71046; 74018; G0378

== ENCOUNTER 2021-07-02 13:14 | Emergency (ER) | payer MEDICARE, OTHER ==
[2021-07-02 13:39] VITALS: RESP 18
--- NOTE | 2021-07-02 13:59 | ED ---
General Adult HPI - General Source: patient, EMS, RN notes reviewed Mode of arrival: EMS Limitations: no limitations <Milan Corral - Last Filed: 07/02/21 13:55> <Arron Osborne - Last Filed: 07/02/21 17:48> - General Chief complaint: Syncope Stated complaint: near syncope Time Seen by Provider: 07/02/21 13:36 - History of Present Illness Initial comments: Patient is a pleasant 80-year-old male presenting to the emergency department not feeling well. Patient is having multiple episodes daily of feeling near sy ncopal. Patient does have recent pacemaker. Patient was in the hospital yesterday with plans for admission however he wanted to go home and left AGAINST MEDICAL ADVICE. Patient states his blood level dropped. Patient denies any bleeding. No red or bloody or black tarry stools. No abdominal pain. No isolated area of weakness or confusion. (Milan Corral) - Related Data Home Medications Medication Instructions Recorded Confirmed Multivitamins, Thera [Multivitamin 1 tab PO DAILY 02/09/15 07/02/21 (formulary)] Celecoxib [CeleBREX] 100 mg PO BID 03/26/16 07/02/21 Ascorbic Acid [Vitamin C] 500 mg PO DAILY 07/01/21 07/02/21 Cyanocobalamin [Vitamin B-12] 500 mcg PO DAILY 07/01/21 07/02/21 Green Tea Protivin Extract [Green Tea 500 mg PO DAILY 07/01/21 07/02/21 Extract] Magnesium Oxide [Marks] 500 mg PO BID 07/01/21 07/02/21 Metoprolol Succinate [Toprol XL] 50 mg PO DAILY 07/01/21 07/02/21 Pantoprazole [Protonix] 40 mg PO DAILY 07/01/21 07/02/21 Potassium Chloride ER [K-Dur 20] 20 meq PO DAILY 07/01/21 07/02/21 Rivaroxaban [Xarelto] 20 mg PO DAILY 07/01/21 07/02/21 Triamcinolone 0.1% Cream [Kenalog 1 applicatio TOPICAL BID 07/01/21 07/02/21 0.1% Cream] Zinc 50 mg PO DAILY 07/01/21 07/02/21 hydroCHLOROthiazide [Hydrodiuril] 25 mg PO DAILY 07/01/21 07/02/21 Allergies Allergy/AdvReac Type Severity Reaction Status Date / Time Sulfa (Sulfonamide Allergy Itching,felt Verified 07/02/21 14:44 Antibiotics) "uneasy" Review of Systems ROS Other: All systems not noted in ROS Statement are negative. Constitutional: Denies: fever Eyes: Denies: eye pain ENT: Denies: ear pain Respiratory: Denies: cough Cardiovascular: Denies: chest pain Endocrine: Reports: fatigue Gastrointestinal: Denies: abdominal pain, melena, hematochezia Genitourinary: Denies: dysuria Musculoskeletal: Denies: back pain Skin: Denies: rash <Milan Corral - Last Filed: 07/02/21 13:55> ROS Other: All systems not noted in ROS Statement are negative. <Arron Osborne - Last Filed: 07/02/21 17:48> ROS Statement: Those systems with pertinent positive or pertinent negative responses have been documented in the HPI. Past Medical History Past Medical History: Atrial Fibrillation, GERD/Reflux, Osteoarthritis (OA) Additional Past Medical History / Comment(s): SOB with exersion, see Dr Mckeon H&P, History of Any Multi-Drug Resistant Organisms: None Reported Past Surgical History: Adenoidectomy, Appendectomy, Heart Catheterization, Joint Replacement, Orthopedic Surgery, Pacemaker, Tonsillectomy Additional Past Surgical History / Comment(s): LEFT ROTATOR CUFF REPAIR, card ioversion, rt knee replacement, eliane cataract, removal of uvula for sleep apnea Past Anesthesia/Blood Transfusion Reactions: Family History of Problems w/ Anesthesia Additional Past Anesthesia/Blood Transfusion Reaction / Comment(s): father got confused and had hallucinations Type of Cardiac Device: Permanent Pacemaker Device Placement Date:: 2011 [facility] Past Psychological History: No Psychological Hx Reported Smoking Status: Former smoker Past Alcohol Use History: None Reported Past Drug Use History: None Reported - Past Family History Father Family Medical History: Cancer Additional Family Medical History / Comment(s): colon CA- Mother Family Medical History: No Reported History <Milan Corral - Last Filed: 07/02/21 13:55> General Exam Limitations: no limitations General appearance: alert, in no apparent distress Head exam: Present: normocephalic Eye exam: Present: normal appearance Neck exam: Present: normal inspection Respiratory exam: Present: normal lung sounds bilaterally Cardiovascular Exam: Present: irregular rhythm GI/Abdominal exam: Present: soft. Absent: tenderness Extremities exam: Present: normal inspection Neurological exam: Present: alert, CN II-XII intact. Absent: motor sensory deficit Expanded Neurological exam: Present: protecting the airway Speech: Present: fluid speech Motor strength exam: RUE: 5, LUE: 5, RLE: 5, LLE: 5 Eye Response: (4) open spontaneously Motor Response: (6) obeys commands Verbal Response: (5) oriented Psychiatric exam: Present: normal affect, normal mood Skin exam: Present: normal color <Milan Corral - Last Filed: 07/02/21 13:55> Course Vital Signs 07/02/21 13:35 Temperature 98.3 F Pulse Rate 82 Respiratory 18 Rate Blood Pressure 137/77 O2 Sat by Pulse 98 Oximetry EKG Findings - EKG Comments: EKG Findings:: A. fib with rate of 92. QRS 80. QT 327. QTC 377. Normal axis. Low QRS voltage. Inverted T-wave in V2. <Milan Corral - Last Filed: 07/02/21 13:55> Medical Decision Making - Lab Data Result diagrams: 07/02/21 15:01 07/02/21 15:01 <Arron Osborne - Last Filed: 07/02/21 17:48> - Medical Decision Making Patient's care was signed out to me by previous shift physician, Dr. Corral. Briefly, patient is a 80-year-old male he was in the hospital yesterday and admitted however due to the lack of bed availabilities and ER holds he decided to leave AGAINST MEDICAL ADVICE. Patient was to be admitted for syncope with anemia. Patient also has concerns of GI bleed. Patient does take anticoagulation medications. He returned this afternoon where he was under the care of Dr. Corral. Patient was evaluated at the bedside at 4:15 PM. He is well-appearing and tolerating oral intake without any issues. Daughter and patient requests that he be transferred to outside hospital due to that situation here. Plan at sign out was to follow up with pending labs and imaging. Laboratory evaluation obtained shows hemoglobin of 7.7. He had a hemoglobin of 7.8 and 7.9 yesterday. Chart review as far back as 2014 and 2015 shows hemoglobin levels of 12.0. His peripheral smear does not suggest iron deficiency anemia. Rest of his labs are unremarkable. Computed tomography scan was ordered by Dr. Corral showing no acut e abnormalities. Patient was observed in the emergency department for approximately 4 hours and 32 minutes is reevaluated bedside at 5:45 PM found to be stable medical condition. Spoke Ximena Pettit was willing to accept patient care. Spoke with Dr. Shine was willing to accept patients care for urinary ER transfer. Patient is agreeable with disposition plan. (Arron Osborne) - Lab Data Lab Results 07/02/21 07/02/21 07/02/21 Range/Units 15:01 15:01 15:01 WBC 8.3 (3.8-10.6) k/uL RBC 2.86 L (4.30-5.90) m/uL Hgb 7.7 L (13.0-17.5) gm/dL Hct 26.4 L (39.0-53.0) % MCV 92.3 (80.0-100.0) fL MCH 26.9 (25.0-35.0) pg MCHC 29.2 L (31.0-37.0) g/dL RDW 14.9 (11.5-15.5) % Plt Count 226 (150-450) k/uL MPV 8.2 Neutrophils % 78 % Lymphocytes % 10 % Monocytes % 8 % Eosinophils % 1 % Basophils % 0 % Neutrophils # 6.5 (1.3-7.7) k/uL Lymphocytes # 0.8 L (1.0-4.8) k/uL Monocytes # 0.7 (0-1.0) k/uL Eosinophils # 0.1 (0-0.7) k/uL Basophils # 0.0 (0-0.2) k/uL Hypochromasia Marked Poikilocytosis Slight PT 16.7 H (9.0-12.0) sec INR 1.6 H (<1.2) APTT 34.4 H (22.0-30.0) sec Sodium (137-145) mmol/L Potassium (3.5-5.1) mmol/L Chloride (98-107) mmol/L Carbon Dioxide (22-30) mmol/L Anion Gap mmol/L BUN (9-20) mg/dL Creatinine (0.66-1.25) mg/dL Est GFR (CKD-EPI)AfAm (>60 ml/min/1.73 sqM) Est GFR (CKD-EPI)NonAf (>60 ml/min/1.73 sqM) Glucose (74-99) mg/dL Calcium (8.4-10.2) mg/dL Total Bilirubin (0.2-1.3) mg/dL AST (17-59) U/L ALT (4-49) U/L Alkaline Phosphatase (38-126) U/L Troponin I (0.000-0.034) ng/mL Total Protein (6.3-8.2) g/dL Albumin (3.5-5.0) g/dL Urine Color Yellow Urine Appearance Clear (Clear) Urine pH 6.0 (5.0-8.0) Ur Specific [place] 1.023 (1.001-1.035) Urine Protein 2+ H (Negative) Urine Glucose (UA) Negative (Negative) Urine Ketones Negative (Negative) Urine Blood Negative (Negative) Urine Nitrite Negative (Negative) Urine Bilirubin Negative (Negative) Urine Urobilinogen 4.0 (<2.0) mg/dL Ur Leukocyte Esterase Negative (Negative) Urine RBC 1 (0-5) /hpf Urine WBC 2 (0-5) /hpf Ur Squamous Epith Cells <1 (0-4) /hpf Hyaline Casts 1 (0-2) /lpf Urine Mucus Rare H (None) /hpf 07/02/21 07/02/21 Range/Units 15:01 15:01 WBC (3.8-10.6) k/uL RBC (4.30-5.90) m/uL Hgb (13.0-17.5) gm/dL Hct (39.0-53.0) % MCV (80.0-100.0) fL MCH (25.0-35.0) pg MCHC (31.0-37.0) g/dL RDW (11.5-15.5) % Plt Count (150-450) k/uL MPV Neutrophils % % Lymphocytes % % Monocytes % % Eosinophils % % Basophils % % Neutrophils # (1.3-7.7) k/uL Lymphocytes # (1.0-4.8) k/uL Monocytes # (0-1.0) k/uL Eosinophils # (0-0.7) k/uL Basophils # (0-0.2) k/uL Hypochromasia Poikilocytosis PT (9.0-12.0) sec INR (<1.2) APTT (22.0-30.0) sec Sodium 140 (137-145) mmol/L Potassium 4.5 (3.5-5.1) mmol/L Chloride 106 (98-107) mmol/L Carbon Dioxide 28 (22-30) mmol/L Anion Gap 6 mmol/L BUN 18 (9-20) mg/dL Creatinine 0.90 (0.66-1.25) mg/dL Est GFR (CKD-EPI)AfAm >90 (>60 ml/min/1.73 sqM) Est GFR (CKD-EPI)NonAf 81 (>60 ml/min/1.73 sqM) Glucose 117 H (74-99) mg/dL Calcium 9.3 (8.4-10.2) mg/dL Total Bilirubin 1.3 (0.2-1.3) mg/dL AST 40 (17-59) U/L ALT 18 (4-49) U/L Alkaline Phosphatase 140 H (38-126) U/L Troponin I 0.026 (0.000-0.034) ng/mL Total Protein 7.3 (6.3-8.2) g/dL Albumin 3.5 (3.5-5.0) g/dL Urine Color Urine Appearance (Clear) Urine pH (5.0-8.0) Ur Specific [place] (1.001-1.035) Urine Protein (Negative) Urine Glucose (UA) (Negative) Urine Ketones (Negative) Urine Blood (Negative) Urine Nitrite (Negative) Urine Bilirubin (Negative) Urine Urobilinogen (<2.0) mg/dL Ur Leukocyte Esterase (Negative) Urine RBC (0-5) /hpf Urine WBC (0-5) /hpf Ur Squamous Epith Cells (0-4) /hpf Hyaline Casts (0-2) /lpf Urine Mucus (None) /hpf Disposition <Milan Corral - Last Filed: 07/02/21 13:55> - Out of Hospital Transfer - Req. Specs Out of Hospital Transfer - Requested Specifics: Other Emergency Center ([facility]) <Bayudan,Arron D - Last Filed: 07/02/21 17:48> Clinical Impression: Anemia Disposition: OTHER INSTITUTION NOT DEFINED Condition: Fair Referrals: Washington Ivory MD [Primary Care Provider] - 1-2 days
--- NOTE | 2021-07-02 15:08 | CT ---
EXAMINATION TYPE: CT brain wo con DATE OF EXAM: 07/02/2021 COMPARISON: CT 10/15/2018 HISTORY: Syncope CT DLP: 1276.4 mGycm Automated exposure control for dose reduction was used. Helical imaging through the brain. Automated exposure control for dose reduction, DLP 1279.4 mGycentimeters FINDINGS: There is no interval change. Cortical atrophy is noted. White matter low-attenuation is not significa ntly changed. Small calcification is present at the level of the head of the caudate on the left as o n prior. There is no hemorrhage or hydrocephalus. IMPRESSION: NO ACUTE ABNORMALITY. AGE-RELATED CHANGES OF ATROPHY AND CHRONIC SMALL VESSEL ISCHEMIA.
[2021-07-02 15:26] LABS: Basophils % (A) 0 %; Eosinophils # (A) 0.1 k/uL (0-0.7); Eosinophils % (A) 1 %; HCT 26.4 % (39.0-53.0); HGB 7.7 gm/dL (13.0-17.5); Hypochromasia Marked; Lymphocytes # (A) 0.8 k/uL (1.0-4.8); Lymphocytes % (A) 10 %; MCH 26.9 pg (25.0-35.0); MCHC 29.2 g/dL (31.0-37.0); MCV 92.3 fL (80.0-100.0); Mean Platelet Volume 8.2; Monocytes # (A) 0.7 k/uL (0-1.0); Monocytes % (A) 8 %; Neutrophils # (A) 6.5 k/uL (1.3-7.7); Neutrophils % (A) 78 %; Platelet Count 226 k/uL (150-450); Poikilocytosis Slight; RBC 2.86 m/uL (4.30-5.90); RDW 14.9 % (11.5-15.5); WBC 8.3 k/uL (3.8-10.6)
[2021-07-02 15:28] LABS: ALT 18 U/L (4-49); AST 40 U/L (17-59); African American GFR (CKD) >90 (>60 ml/min/1.73 sqM); Albumin 3.5 g/dL (3.5-5.0); Alkaline Phosphatase 140 U/L (38-126); Anion Gap 6 mmol/L; Blood Urea Nitrogen 18 mg/dL (9-20); Calcium 9.3 mg/dL (8.4-10.2); Carbon Dioxide 28 mmol/L (22-30); Chloride 106 mmol/L (98-107); Glucose 117 mg/dL (74-99); Non-African American GFR(CKD) 81 (>60 ml/min/1.73 sqM); Potassium 4.5 mmol/L (3.5-5.1); Sodium 140 mmol/L (137-145); Total Bilirubin 1.3 mg/dL (0.2-1.3); Total Protein 7.3 g/dL (6.3-8.2)
[2021-07-02 15:36] LABS: INR 1.6 (<1.2); Partial Thromboplastin Time 34.4 sec (22.0-30.0); Prothrombin Time 16.7 sec (9.0-12.0)
[2021-07-02] MEDS ORDERED: PANTOPRAZOLE 40 MG/10 ML VIAL IVP STA (16:16)
[2021-07-02 16:33] LABS: Appearance,Urine Clear (Clear); Bilirubin,Urine Negative (Negative); Blood,Urine Negative (Negative); Color,Urine Yellow; Glucose,Urine (UA) Negative (Negative); Hyaline Casts,Urine 1 /lpf (0-2); Ketones,Urine Negative (Negative); Leukocyte Esterase,Urine Negative (Negative); Mucus,Urine Rare /hpf; Nitrite,Urine Negative (Negative); Protein,Urine 2+ (Negative); RBC,Urine 1 /hpf (0-5); Specific Gravity,Urine 1.023 (1.001-1.035); Squamous Epithelial Cell,Urine <1 /hpf (0-4); WBC,Urine 2 /hpf (0-5)
[2021-07-02 18:05] VITALS: BP 111/62; PULSE 91; TEMP 98
== END 2021-07-02 18:20 | disposition other institution (70) ==
LOC: EC 13:14
DX: D64.9 Anemia, unspecified (principal); I48.91 Unspecified atrial fibrillation; K21.9 Gastro-esophageal reflux disease without esophagitis; M19.90 Unspecified osteoarthritis, unspecified site; Z88.2 Allergy status to sulfonamides; Z90.49 Acquired absence of other specified parts of digestive tract; Z95.0 Presence of cardiac pacemaker; Z96.651 Presence of right artificial knee joint; Z87.891 Personal history of nicotine dependence
CPT/HCPCS: 99285; 96374; 36415; 93005; 80053; 84484; 85025; 85610; 85730; 81001; 70450; C9113

== ENCOUNTER → 2022-09-18 | Outpatient (CLI) | payer MEDICARE, OTHER ==
--- NOTE | 2022-09-18 12:41 | US ---
EXAMINATION TYPE: US abdomen limited DATE OF EXAM: 09/18/2022 COMPARISON: US 12/17/21 CLINICAL INDICATION: Male, 82 years old with history of K74.60 CIRRHOSIS OF LIVER; Cirrhosis. Hx appe ndectomy. TECHNIQUE: Multiple sonographic images of the right upper quadrant are obtained. FINDINGS: EXAM MEASUREMENTS: Liver Length: 12.4 cm Gallbladder Wall: 0.43 cm CBD: Obscured Right Kidney: 10.0 x 5.3 x 5.6 cm [employer] SUPERVISOR NOTES: Exam is extremely limited due to a large amount of overlying gas and small rib s paces. Pancreas: Obscured Liver: Slightly coarsened echotexture. Limited detailed assessment. Unable to visualize the entirety of the liver due to above-mentioned limitations. No obvious focal lesion is seen. Gallbladder: Wall appears thickened. Limited visibility, seen in LLD only. Echogenic nodule seen with in: 1.4 x 1.0 x 0.9 cm. No hydropic changes surrounding fluid seen. Evidence for sonographic Ram's sign: No CBD: Obscured Right Kidney: Benign cortical cyst at the midpole measuring 2.0 x 1.9 x 1.4 cm. No hydronephrosis. IMPRESSION: 1. Very limited exam as mentioned above. 2. Coarsened liver parenchyma in keeping with patient's history of cirrhosis. The visualized portions of the liver show no evidence for hepatoma. Consider further MRI evaluation for more detailed and co mplete assessment. 3. Cholelithiasis. Gallbladder wall thickening may reflect chronic cholecystitis. 4. Unable to assess the bile duct.
[2022-09-18 15:04] LABS: HCT 33.4 % (39.6-50.0); HGB 10.5 g/dL (13.0-17.0); MCH 34.3 pg (27.0-32.0); MCHC 31.4 g/dL (32.0-37.0); MCV 109.2 fL (80.0-97.0); NRBC Per 100 WBC 0 /100 WBCS (0.0-0.0); Platelet Count 196 X 10*3/uL (140-440); RBC 3.06 X 10*6/uL (4.40-5.60); WBC 6.79 X 10*3/uL (4.50-10.00)
[2022-09-18 15:28] LABS: INR 1.1 (<1.2); Prothrombin Time 11.2 sec (9.0-12.0)
[2022-09-18 15:59] LABS: % Iron Saturation 25.72 (15.00-50.00); Ferritin 93.9 ng/mL (22.0-322.0)
[2022-09-18 16:04] LABS: Basophils # (A) 0.06 X 10*3/uL (0.00-0.10); Basophils % (A) 0.9 %; Eosinophils # (A) 0.61 X 10*3/uL (0.04-0.35); Immature Grans, Automated 0.9 %; Lymphocytes # (A) 0.51 X 10*3/uL (0.90-5.00); Lymphocytes % (A) 7.5 %; Monocytes # (A) 1.09 X 10*3/uL (0.20-1.00); Monocytes % (A) 16.1 %; Neutrophils # (A) 4.46 X 10*3/uL (1.80-7.70); Neutrophils % (A) 65.6 %
[2022-09-18 16:05] LABS: Albumin 4.3 g/dL (3.8-4.9); Albumin/Globulin Ratio 1.17 (1.60-3.17); Anion Gap 10.2 mmol/L (10.00-18.00); BUN/Creat Ratio 14.29 Ratio (12.00-20.00); Calcium 10.3 mg/dL (8.7-10.3); Carbon Dioxide 24.6 mmol/L (20.0-27.5); Globulin 3.6 g/dL (1.6-3.3); Macrocytosis (M) 2+; Non-African American GFR(CKD) 61.3 (60.0-200.0); Potassium 4.6 mmol/L (3.5-5.5); Total Bilirubin 2.4 mg/dL (0.30-1.20); Total Protein 7.9 g/dL (6.2-8.2)
== END | disposition home or self-care (01) ==
LOC: RADUSWWP 06:57
PROVIDERS: ATTEND Family Medicine
DX: K80.20 Calculus of gallbladder without cholecystitis without obstruction (principal); K74.60 Unspecified cirrhosis of liver; K72.10 Chronic hepatic failure without coma; D64.9 Anemia, unspecified; Z90.49 Acquired absence of other specified parts of digestive tract
CPT/HCPCS: 76705; 80053; 82607; 82728; 82746; 83540; 83550; 85025; 85610; 85730